=== PATIENT | male | born 2000 | race Hispanic/Latino ===

== ENCOUNTER 2020-01-05 06:13 | Day surgery (SDC) | payer OTHER ==
[~2020-01-05] VITALS: Ht 175.3 cm; Wt 83.9 kg
[~2020-01-05 06:13] MED LIST: LIDOCAINE 1% MDV 20ML VIAL SQ PRN
[2020-01-05] MEDS ORDERED: ceFAZolin SOD 2 GM in IV 1 EA IV ONE (07:00)
[2020-01-05] MEDS ORDERED: LR 1,000 ML IV ONE (07:00)
[2020-01-05] MEDS ORDERED: BACITRACIN OINTMENT 30GM TUBE As Ordered ONE (07:11)
[2020-01-05] MEDS ORDERED: LIDOCAINE 2% 100MG/5ML SDV (FOR ANES.) As Ordered ONE (07:14)
[2020-01-05] MEDS ORDERED: propofoL 200 MG/20 ML VIAL As Ordered ONE (07:14)
[2020-01-05] MEDS ORDERED: dexameTHASONE 4 MG/ML 1ML VIAL (J1100 PER 1MG) As Ordered ONE (07:14)
[2020-01-05] MEDS ORDERED: KETOROLAC 60MG 2ML VIAL As Ordered ONE (07:14)
[2020-01-05] MEDS ORDERED: ACETAMINOPHEN 1000MG 100ML IV BTL (OFIRMEV) (J0131 PER 10MG) As Ordered ONE (07:14)
[2020-01-05] MEDS ORDERED: ONDANSETRON 4MG/2ML VIAL As Ordered ONE (07:14)
[2020-01-05] MEDS ORDERED: MIDAZOLAM INJ 2MG/2ML VIAL (J2250 PER 1MG) As Ordered ONE (07:15)
[2020-01-05] MEDS ORDERED: fentaNYL 100 MCG/2 ML INJECTION (J3010) As Ordered ONE (07:15)
[2020-01-05] MEDS ORDERED: PERC5TAB12 PO (08:51)
[2020-01-05] MEDS ORDERED: fentaNYL 100 MCG/2 ML INJECTION (J3010) IV PRN (09:00)
[2020-01-05] MEDS ORDERED: LR 1,000 ML IV SCH (09:00)
[2020-01-05] MEDS ORDERED: oxyCODONE 5MG TAB PO PRN (09:00)
[2020-01-05] MEDS ORDERED: PERCOCET 5MG/325MG TAB PO PRN (09:00)
[2020-01-05] MEDS ORDERED: ONDANSETRON 4MG/2ML VIAL IV PRN (09:00)
[2020-01-05 09:48] VITALS: BP 126/56
--- NOTE | 2020-01-05 09:55 | ROOPDOC ---
[facility] Report Of Operation Report of Operation DATE OF PROCEDURE: 01/05/20 PREPROCEDURE DIAGNOSIS: Phimosis, Balanitis. POSTPROCEDURE DIAGNOSIS: Phimosis, Balanitis. OPERATIVE PROCEDURE: Circumcision. SURGEON: Noemi Ramírez MD ARMHOLE B[employer]ER JUMPBASTING: None. ANESTHESIA: General. OPERATIVE INDICATIONS: This is a 19-year-old male with phimosis and previous episodes of balanitis, here for a circumcision. DESCRIPTION OF PROCEDURE: The patient was brought to the operating room and general endotracheal anesthesia was induced. Prophylactic antibiotics were infused. He was then placed in supine position and prepped and draped in the usual sterile fashion. Circumcising incisions were made at the level of coronal sulcus with the foreskin completely pulled over the glans, and then also with the foreskin retracted down off of the glans. These circumcising incisions were then connected using electrocautery. All the foreskin between the circumcising incisions was then removed using electrocautery. Once that was done hemostasis was obtained using the coagulation current. Once satisfied with hemostasis, the skin of the penile shaft was reapproximated to the glans using interrupted #3-0 chromic sutures. Dressings were then applied, including Angelique and a Coban dressing, and this marked the conclusion of the procedure. The patient was then awakened from anesthesia and transported to the recovery room in stable condition. ESTIMATED BLOOD LOSS: 10 mL. COMPLICATIONS: None. SPECIMENS: Foreskin. PLAN: The patient will followup in clinic in a approximately 2 weeks for a postoperative visit. NOEMI RAMÍREZ MD Jan 05, 2020 09:55
== END 2020-01-05 10:15 | disposition home or self-care (01) ==
LOC: M SDC 06:13
PROVIDERS: ATTEND Urology
DX: N47.1 Phimosis (principal); F17.290 Nicotine dependence, other tobacco product, uncomplicated
CPT/HCPCS: 54161; 88304; J0131; J0690; J1100; J1885; J2250; J2405; J3010

== ENCOUNTER 2020-08-05 13:30 | Emergency (ER) | payer OTHER ==
[~2020-08-05] VITALS: Ht 172.7 cm; Wt 88.5 kg
[~2020-08-05 13:30] MED LIST changes: -LIDOCAINE 1% MDV 20ML VIAL SQ PRN; +PERC5TAB12 PO
[2020-08-05] MEDS ORDERED: IBUP200C25 PO (13:38)
[2020-08-05 14:41] LABS: BASO % 0.3 % (0.0-1.0); EOS # 0.1 10^3/uL (0.0-0.5); EOS % 0.8 % (0.0-3.0); HEMATOCRIT 49.6 % (42.0-52.0); HEMOGLOBIN 17.5 g/dl (13.5-17.5); LYMPH # 1.5 10^3/uL (1.5-5.0); LYMPH % 23.1 % (24.0-44.0); MEAN CORPUSCULAR HEMOGLOBIN 31.6 pg (27.0-33.0); MEAN CORPUSCULAR HGB CONC 35.3 g/dl (32.0-36.5); MEAN CORPUSCULAR VOLUME 89.7 fl (80.0-96.0); MONO # 0.9 10^3/uL (0.0-0.8); MONO % 13.9 % (2.0-8.0); NEUTROPHILS # 4.1 10^3/uL (1.5-8.5); NEUTROPHILS % 61.6 % (36.0-66.0); PLATELET COUNT, AUTOMATED 278 10^3/uL (150-450); RED BLOOD COUNT 5.53 10^6/uL (4.30-6.10); WHITE BLOOD COUNT 6.6 10^3/uL (4.0-10.0)
[2020-08-05 15:07] LABS: BLOOD UREA NITROGEN 17 MG/DL (7-18); CALCIUM LEVEL 8.6 MG/DL (8.5-10.1); CARBON DIOXIDE LEVEL 30 MEQ/L (21-32); CHLORIDE LEVEL 107 MEQ/L (98-107); CK-MB VALUE MASS < 1.0 NG/ML (<3.6); CPK CREATINE PHOSPHOKINASE 105 U/L (39-308); CREATININE FOR GFR 0.89 MG/DL (0.70-1.30); GLUCOSE, FASTING 84 MG/DL (70-100); MB/CK RELATIVE INDEX 0.95 (< OR =4); POTASSIUM SERUM 4.3 MEQ/L (3.5-5.1); SODIUM LEVEL 139 MEQ/L (136-145); TROPONIN I < 0.02 NG/ML (< 0.10)
--- NOTE | 2020-08-05 15:49 | REP ---
INDICATION: CHEST PAIN. COMPARISON: No comparison study. TECHNIQUE: Portable upright AP chest radiograph. FINDINGS: The lungs are well inflated and free of infiltrate. Pleural angles are sharp. Heart size is normal. Pulmonary vasculature is not increased. IMPRESSION: No active disease. <Electronically signed by Jair Coronado > 08/05/20 3021
[2020-08-05 16:45] VITALS: BP 105/61
--- NOTE | 2020-08-07 16:36 | ECGEPIP ---
[facility] - ED Test Date: 2020-08-05 Pat Name: KORY CRYSTAL Department: Room: - Gender: Male Medical Office Asst: LR : 2000 Requested By: TORY Carranza Order Number: [id number] Reading MD: Lindy Cage Measurements Intervals [place] Rate: 59 P: 17 ND: 138 QRS: 63 QRSD: 92 T: 11 QT: 392 QTc: 388 Interpretive Statements Sinus bradycardia with marked sinus arrhythmia Early repolarization No prior Electronically Signed on 08-07-2020 16:35:53 EDT by Lindy Cage
== END 2020-08-05 16:55 | disposition home or self-care (01) ==
LOC: M ED 13:30
DX: R05 Cough (principal)

== ENCOUNTER 2020-12-29 07:27 | Outpatient (CLI) | payer OTHER ==
[~2020-12-29] VITALS: Ht 177.8 cm; Wt 88.6 kg
[~2020-12-29 07:27] MED LIST changes: +IBUP200C25 PO
[2020-12-29 07:30] VITALS: BP 148/78
[2020-12-29] MEDS ORDERED: COSYNTROPIN 0.25 MG/ML VIAL (J0834 PER 0.25MG) IV SCH ×2 (07:30→08:00)
[2020-12-29 09:45] VITALS: BP 136/70
== END 2020-12-29 09:45 | disposition home or self-care (01) ==
LOC: M INFU 07:27
PROVIDERS: ATTEND Internal Medicine Endocrinology, Diabetes & Metabolism
DX: E27.1 Primary adrenocortical insufficiency (principal)
CPT/HCPCS: 36592; 82533; 96374; J0834

== ENCOUNTER 2021-08-28 09:25 | Emergency (ER) | payer OTHER ==
[~2021-08-28] VITALS: Ht 175.3 cm; Wt 94.1 kg
[2021-08-28 09:26] VITALS: BP 125/60
== END 2021-08-28 10:41 | disposition home or self-care (01) ==
LOC: M ED 09:25
DX: J09.X2 Influenza due to identified novel influenza A virus with other respiratory manifestations (principal); F10.10 Alcohol abuse, uncomplicated; F17.200 Nicotine dependence, unspecified, uncomplicated